=== PATIENT | male | born 1955 | race Caucasian/White ===

== ENCOUNTER 2021-02-07 16:41 | Emergency (ER) | payer BC ==
[~2021-02-07] VITALS: Ht 182.9 cm; Wt 90.7 kg
[2021-02-07] MEDS ORDERED: methylPREDNISolone SOD SUCC 125 MG/2 ML VL IV ONE (17:15)
[2021-02-07 17:27] VITALS: BP 176/83
[2021-02-07] MEDS ORDERED: ACETAMINOPHEN 500 MG TAB PO ONE (17:30)
== END 2021-02-07 21:46 | disposition left against medical advice (07) ==
LOC: ER 16:41
DX: U07.1 COVID-19 (principal); J96.00 Acute respiratory failure, unspecified whether with hypoxia or hypercapnia; I10 Essential (primary) hypertension; Z53.29 Procedure and treatment not carried out because of patient's decision for other reasons; Z90.89 Acquired absence of other organs
CPT/HCPCS: 71046